=== PATIENT | male | born 1985 | race Caucasian/White ===

== ENCOUNTER 2019-07-17 14:58 | Emergency (ER) | payer SELFPAY ==
[~2019-07-17] VITALS: Ht 167.6 cm; Wt 73.0 kg
[2019-07-17 15:04] VITALS: BP 132/61
== END 2019-07-17 21:30 | disposition left against medical advice (07) ==
LOC: ER 14:58
DX: R10.9 Unspecified abdominal pain (principal); Z53.21 Procedure and treatment not carried out due to patient leaving prior to being seen by health care provider